=== PATIENT | male | born 1985 | race Caucasian/White ===

== ENCOUNTER 2025-03-26 15:37 | Outpatient (AMB) | payer BC, SELFPAY ==
--- OUTSIDE RECORDS SUMMARY | 2025-03-26 15:41 | XMS_ITS | Clinical Summary ---
Author Organization [facility] Address [address] [place] [address] [place] [phone] Phone Care Team Providers Care Computer Operations Technician Name Role Phone Pcp, Unknown Primary Care Provider Unavailabl e Social History Tobacco Use Types Packs/Day Years Used Date Smoking Tobacco: Never Assessed Education Answer Date Recorded Are you interested in more education? Not on bob e 03/18/2025 Are you concerned about learning? Not on file 03/18/2025 No 03/18/2025 No 03/18/2025 Digital Access Answer Date Recorded No 03/18/2025 No 03/18/2025 Reliable internet access at home? Not on file 03/18/2025 Device with a working camera? Not on file Sex and Gender Information Value Date Recorded Sex Assigned at Not on file Legal Sex Male 3:24 PM EST Gender Identity Not on file Sexual Orientation Not on file Plan of Treatment Upcoming Encounters Date Type Department Care Team ([facility] st Contact Info) Description 12/06/2025 1:00 PM EDT Office Visit [facility] [address] [place] [address] Carmelina Newman MD [address] [facility], [address] [place] [address] [email or web address] Health Maintenance Due Date Last Done Comments Adult Td,Tdap Booster 1983 LIPID PANEL 1983 DEPRESSION SCREENING 1995 SMOKING Hx and SMOKELESS TOB ACCO SCREENING 1996 HEPATITIS C SCREENING 2001 HIV ONE-TIME SCREENING (18-6 5 YEARS) 2001 INFLUENZA VACCINE (#1) 2024 COVID-19 VACCINE (2024-2 6 season) 2025 HEPATITIS A VACCINES Aged Out No long er eligible based on patient's age to complete this topic HIB VACCINES Aged Out No longer eligi ble based on patient's age to complete this topic MENINGOCOCCAL VACCINES (ACWY) Aged Out No longer eligible based on patient's age to complete this topic MENINGOCOCCAL VACCINES (B) Aged Out N o longer eligible based on patient's age to complete this topic PNEUMOCOCCAL VACCINES (0-49 years) Aged Out No longer eligible based on patient's age to complete this topic Medical Devices Not on file Insurance Is That Odd ADMINISTRATORS [employer] [place] [employer] [place] [employer] [place] [employer] Care Teams Computer Operations Technician Relationship Specialty Start Date End Date Pcp, Unknown PCP - General 03/17/25 Additional Source Comments The information contained in this document represents components of the legal health record. It is not the complete legal health record.[facility]
--- NOTE | 2025-03-26 15:44 | MHC.PC.OV ---
Vital Signs 03/26/25 15:48 Height 6 ft 3.39 in Weight 258 lb 6 oz BMI 32.0 BP 104/78 Blood Pressure Location Lt brachial Position Sitting Respiration 14 Pulse 79 Pulse Source Pulse Oximeter Temp 98 F Temp Source Oral Pulse Oximetry (%) 97 Oxygen Delivery Method Room Air Intake Visit Reasons: ED Follow-up /[facility] 03/22 -per dr Intake Note: Emergency room follow up Operations Manager Required: No Allergies No Known Allergies Allergy (Verified 03/26/25 15:49) Tobacco use date assessed: 03/26/25 Dental Screening Dental Screen Date: 03/26/25 Did you have a dental visit in the last 12 months?: Yes Did you have a dental problem in the last 6 months where you did not have access to dental care?: No Was dental information given to patient?: Patient has dentist HPI HPI Comments History of Present Illness Details 39 year old male with recent history of atrial fibrillation and hyperthyroid [facility]. Transfer from [facility] He was evaluated at [facility] ER on 03/21/25 with c/o palpitations and sweating. He reported that intermittent palpitations started one week prior. Patient pulse 131 -atrial fibrillation. Blood pressure elevated at 147/90. Given cardizem and IV fluids. Discharged on cardizem 60mg daily. In interim saw [facility] outpatient cardiology. They noticed labs from the ER with TSH <0.01 and free T4 3.36. His diltiazem was increased to 180mg daily. He remained tachycardic so last week patient called and I reviewed the TSH and started the patient on propranolol. Now rate controlled but still in atrial fibrillation. He has cardiology f/up pending. Echocardiogram pending. He has an appt with endocrinology at the end of Apr. Will start him on methimazole. He is feeling much better on the propranolol but still no back to baseline ROS CONSTITUTIONAL: Denies weight loss, fever and chills. HEENT: Denies changes in vision and hearing. RESPIRATORY: Denies SOB and cough. CV: Denies palpitations and CP GI: Denies abdominal pain, nausea, vomiting and diarrhea. : Denies dysuria and urinary frequency. MSK: Denies new myalgia and joint pain. SKIN: Denies rash and pruritus. NEUROLOGICAL: Denies headache PSYCHIATRIC: Denies recent changes in mood. PHYSICAL EXAM: GENERAL: Alert and oriented x 3. NAD EYES: EOMI. Anicteric. HENT: Moist mucous membranes. No scleral icterus. No cervical lymphadenopathy. LUNGS: Clear to auscultation bilaterally. CARDIOVASCULAR: Irregular. No JVD. ABDOMEN: Soft, non-tender +bs EXTREMITIES: No edema. Non-tender. SKIN: No rashes or lesions. Warm. NEUROLOGIC: No focal neurological deficits. CN II-XII grossly intact PSYCHIATRIC: Cooperative. 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 1. Little interest or pleasure in doing things: not at all 2. Feeling down, depressed, or hopeless: not at all 3. Trouble falling or staying asleep, or sleeping too much: not at all 4. Feeling tired or having little energy: several days 5. Poor appetite or overeating: not at all 6. Feeling bad about yourself - or that you are a failure or have let yourself or your family down: not at all 7. Trouble concentrating on things, such as reading the newspaper or watching television: not at all 8. Moving or speaking so slowly that other people could have noticed. Or the opposite - being so fidgety or restless that you have been moving around a lot more than usual: not at all 9. Thoughts that you would be better off or of hurting yourself in some way: not at all Total score: 1 Depression Screening Interpretation: Negative Depression Screening Done: Yes 79081 - PHQ-9 Billing: Yes Source: Developed by Drs. Alpesh Aponte, Teresa Chase, Gabo Laurent and colleagues, with an educational sophia from [employer]. Thrive Questionnaire Date Thrive assessed: 03/23/25 I am a: Patient What is your living situation today?: I have a steady place to live Within the past 12 months, did the food you bought not last and you didn't have the money to get more?: Never true Within the past 12 months, did you worry whether your food would run out before you got money to buy more?: Never true Do you have trouble paying for medicines?: No Do you have trouble getting transportation to medical appointments?: No Do you have trouble paying your heating and electricity bill?: No Do you have trouble taking care of your child, family member or friend?: No Do you have trouble with day-to-day activities such as bathing, preparing meals, shopping, managing finances, etc.?: No Are you currently unemployed and looking for a job?: No Are you interested in more education?: No Please select the resources that you would like help with: None Currently or been in a relationship where the following occur: No concerns reported THRIVE Score: 0 AUDIT C Alcohol Use Questionnaire (AUDIT-C) 1. How often do you have a drink containing alcohol?: Monthly or less 2. How many drinks containing alcohol do you have on a typical day when you are drinking?: 1 or 2 3. How often do you have six or more drinks on one occasion?: Never Total Score: 1 HOLDEN-7 AMB Questionnaire HOLDEN-7 Date HOLDEN - 7 assessed: 03/26/25 Feeling nervous, anxious, or on edge: 0 = Not at all Not being able to stop or control worryin = Not at all Worrying too much about different things: 0 = Not at all Trouble relaxin = Not at all Being so restless that it is hard to sit still: 0 = Not at all Becoming easily annoyed or irritable: 0 = Not at all Feeling afraid as if something awful might happen: 0 = Not at all Total HOLDEN-7 score (0-4 normal; 5-9 mild; 10-14 moderate; 15-21 severe): 0 Source: Developed by Teresa Lozoya Kurt Kroenke and colleagues, with an educational sophia from [employer]. HOLDEN-7 Assessment Billing HOLDEN-7 Assessment Tool: HOLDEN-7 Assessment 44314 Physical exam (Primary Care) Vital Signs: Last Vital Signs Temp 98 F 03/26/25 15:48 Pulse 79 03/26/25 15:48 Resp 14 03/26/25 15:48 BP 104/78 03/26/25 15:48 Pulse Ox 97 03/26/25 15:48 Oxygen Delivery Method Room Air 03/26/25 15:48 BMI result Body Mass Index 32.0 Tobacco/Smoking Status: Tobacco use Status Tobacco use date assessed 03/26/25 03/26/25 15:56 Patient Tobacco Use Status Never used Tobacco 03/26/25 15:56 e-Cigarette/Vaping Use Never Used 03/26/25 16:02 PHQ-9: PHQ-9 Score PHQ-9: Total score 1 03/29/25 07:16 Depression Screening Interpretation: Negative Thrive Assessment: Date of Thrive Assessment Date Thrive assessed 03/23/25 03/26/25 15:44 Currently or been in a relationship where the following occur: No concerns reported Coding Level of Care Code Complex visit Add On G2211 Diagnoses Hyperthyroidism E05.90 Atrial fibrillation, unspecified type I48.91 Atrial fibrillation type: unspecified Excessive sweating R61 Additional Codes HOLDEN-7 Assessment Billing - HOLDEN-7 Assessment Tool: HOLDEN-7 Assessment 28643 ([id number]) PHQ-9 - 32281 - PHQ-9 Billing: Yes ([id number]) Assessment & Plan Assessment & Plan (1) Hyperthyroidism: Code(s): E05.90 - Thyrotoxicosis, unspecified without thyrotoxic crisis or storm Category: Medical (2) Atrial fibrillation: Code(s): I48.91 - Unspecified atrial fibrillation Category: Medical Qualifiers: Atrial fibrillation type: unspecified Qualified Code(s): I48.91 - Unspecified atrial fibrillation (3) Excessive sweating: Code(s): R61 - Generalized hyperhidrosis Plan 39 year old male with recent development of atrial fibrillation Labs consintent with hyperthyroid state He is now rate controlled with the addition of propranolol. Will add methimazole. Continue cardiology and endocrinology Orders: Orders IRON PROFILE 03/26/25 I48.91 - Unspecified atrial fibrillation, E05.90 - Thyrotoxicosis, unspecified without thyrotoxic crisis or storm Complete Blood Count Auto Diff 03/26/25 I48.91 - Unspecified atrial fibrillation, E05.90 - Thyrotoxicosis, unspecified without thyrotoxic crisis or storm
[2025-03-26 15:48] VITALS: BP 104/78; PULSE 79; RESP 14; TEMP 36.6; O2SAT 97; BMI 32.0
== END 2025-03-26 16:18 | disposition home or self-care (01) ==
LOC: HO.HMCFM 15:38
PROVIDERS: PCP Internal Medicine; Visit Provider Internal Medicine
DX: E05.90 Thyrotoxicosis, unspecified without thyrotoxic crisis or storm (principal); I48.91 Unspecified atrial fibrillation; R61 Generalized hyperhidrosis

== ENCOUNTER → 2025-03-26 15:37 | Outpatient (BNVA) | payer OTHER, SELFPAY | PROVIDERS: Visit Provider Internal Medicine | DX: Z13.31 Encounter for screening for depression (principal); Z13.39 Encounter for screening examination for other mental health and behavioral disorders | CPT/HCPCS: 96127 ==

== ENCOUNTER 2025-04-06 14:07 | Outpatient (AMB) | payer BC, SELFPAY ==
[2025-04-06 14:12] VITALS: BP 124/72; PULSE 98; O2SAT 96; BMI 31.7
--- NOTE | 2025-04-06 14:12 | A.OFFVIS_ITS ---
Vital Signs 04/06/25 14:12 Height 6 ft 3.9 in Weight 260 lb 2.327 oz BMI 31.7 BP 124/72 Blood Pressure Location Rt brachial Position Sitting Pulse 98 Pulse Source Pulse Oximeter Pulse Oximetry (%) 96 Oxygen Delivery Method Room Air Intake Visit Reasons: Thyrotoxicosis, unspecified without thyrotoxic cri Intake Note: NEW Patient presents today to establish care for Thyrotoxicosis, unspecified without thyrotoxic cri: Hazardous Waste Remover Required: No Accompanied by: Significant Other Allergies No Known Allergies Allergy (Verified 04/06/25 14:20) Medication List - Last Reconciled 04/06/25 by Alpesh Wakefield MD diltiazem HCl ER 180 mg PO DAILY methimazole 5 mg PO DAILY propranolol 20 mg PO Q6H HPI Comments Details: 39 YO M referred for hyperthyroidism. Patient was started on methimazole 5 mg q.d. and propranolol 20 mg q.d. prior to appointment 3 weeks ago and conjunction with primary care endocrinology. No prior hx Dxed with a-fib in ER Currently denies any dysphagia or hoarseness of voice. Denies sensation of swelling in the neck or difficulty breathing while lying flat. Denies any tend erness in the neck. Has less frequent palpitations, -tremors, +weight loss, -frequent bowel movements. Denies any ocular complaints, blurred or double vision. Denies hair loss, dry skin, heat or cold intolerance, weight gain, confusion. Denies any family history of thyroid cancer. 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 There are no thyroid nodules palpated. There was no bruit present over the thyroid gland. There was noexopthalmus or proptosis is present Assessment & Plan Assessment & Plan (1) Hyperthyroidism: Code(s): E0.90 - Thyrotoxicosis, unspecified without thyrotoxic crisis or storm Category: Medical Plan: This is a 39-year-old white male with a history of hyperthyroidism most likely secondary to Graves disease. Differential diagnosis does include thyroiditis. Patient's currently being treated with methimazole 5 mg and propranolol Plan is to recheck thyroid function studies as well as TRAB antibodies along with CBC and liver panel . Depending upon above, will adjust methimazole accordingly. Assuming patient has Graves disease, will discuss options of treatment including the use of methimazole versus radioactive iodine vs surgery. Also went over side effects of methimazole including but not limited to liver toxicity and agranulocytosis Orders: Orders Triiodothyronine T3 Free Today E05.90 - Thyrotoxicosis, unspecified without thyrotoxic crisis or storm Thyroid Stimulating Hormone Today E05.90 - Thyrotoxicosis, unspecified without thyrotoxic crisis or storm Free T4 (Free Thyroxine) Today E05.90 - Thyrotoxicosis, unspecified without thyrotoxic crisis or storm Thyrotropin Receptor Antibody Today E05.90 - Thyrotoxicosis, unspecified without thyrotoxic crisis or storm Liver Panel Today E05.90 - Thyrotoxicosis, unspecified without thyrotoxic crisis or storm Complete Blood Count Auto Diff Today E05.90 - Thyrotoxicosis, unspecified without thyrotoxic crisis or storm, I48.91 - Unspecified atrial fibrillation Coding Level of Care Code New Pt Level 4 (24618) Diagnoses Hyperthyroidism E05
--- OUTSIDE RECORDS SUMMARY | 2025-04-06 16:09 | XMS_ITS | Clinical Summary ---
Author Organization [facility] Address [address] [place] [address] [place] [phone] Phone Care Team Providers Care Treatment Coordinator Name Role Phone Pcp, Unknown Primary Care [...] Upcoming Encounters Date Type Department Care Team ([facility] st Contact Info) Description 12/06/2025 1:00 PM EDT Office Visit [facility] [address] [place] [address] Carmelina Newman MD [address] [facility], [address] [place] [address] [email or web address] Health Maintenance Due Date Last Done [...] topic Medical Devices Not on file Insurance [employer]MIN[employer]RATORS [employer] BENEFITS ADMINISTRATORS [employer]AT[employer] [place] [phone] Care Teams Treatment Coordinator Relationship Specialty Start Date End Date Pcp, Unknown PCP - General 03/17/25 Additional Source Comments The information contained in this document represents components of the legal health record. It is not the complete legal health record.[facility]
== END 2025-04-06 15:12 | disposition home or self-care (01) ==
LOC: HO.ENCR 14:08
PROVIDERS: PCP Internal Medicine; Visit Provider Internal Medicine Endocrinology, Diabetes & Metabolism
DX: E05.90 Thyrotoxicosis, unspecified without thyrotoxic crisis or storm (principal)
CPT/HCPCS: 99204

== ENCOUNTER 2025-04-06 14:07 | Outpatient (REF) | payer OTHER, SELFPAY ==
[2025-04-06 15:32] LABS: MANUAL DIFF FLAG NO
[2025-04-06 15:49] LABS: Hematocrit 48.7 % (42.0-52.0); Hemoglobin 16.2 g/dl (14.0-18.0); Imm Gran Abs Auto 0.01 X10*3/uL (0.00-0.03); Imm Gran Pct Auto 0.2 % (0.0-0.4); Lymphocytes Absolute Auto 1.6 X10*3/uL (1.2-4.9); Mean Corpuscular HGB Conc 33.3 g/dl (31.0-36.0); Mean Corpuscular Hemoglobin 28.6 pg (27.0-33.0); Mean Corpuscular Volume 85.9 fL (80.0-98.0); NRBC Abs Auto 0.000 X10*3/uL (0.0-0.012); NRBC Pct Auto 0.0 /100WBC (0.0-0.2); Platelet Count 216 X10*3/uL (160-400); Red Blood Count 5.67 X10*6/uL (4.60-5.80); White Blood Count 5.5 X10*3/uL (4.8-10.8)
[2025-04-06 16:19] LABS: Alanine Aminotransferase 53 U/L (0-40); Albumin Level 4.5 g/dL (3.5-5.0); Alkaline Phosphatase 87 U/L (39-117); Aspartate Amino Transferase 31 U/L (5-37); Iron 78 mcg/dL (45-160); Percent Iron Saturation 30 % (15-50); Total Iron Binding Capacity 256 mcg/dL (228-428); Total Protein 6.7 g/dL (6.5-8.0); Unsaturated Iron Binding 178 ug/dL
[2025-04-06 16:40] LABS: Free T4 (Free Thyroxine) 1.97 ng/dL (0.71-1.85); Thyroid Stimulating Hormone < 0.01 uIU/mL (0.32-4.0)
== END 2025-04-06 14:08 | disposition home or self-care (01) ==
LOC: HO.LAB 14:07
PROVIDERS: PCP Internal Medicine; Visit Provider Internal Medicine Endocrinology, Diabetes & Metabolism
DX: E05.90 Thyrotoxicosis, unspecified without thyrotoxic crisis or storm (principal); I48.91 Unspecified atrial fibrillation
CPT/HCPCS: 36415; 80076; 83520; 83540; 84439; 84443; 84481; 85025